=== PATIENT | female | born 1950 | race African-American/Black ===

== ENCOUNTER 2019-10-12 19:21 | Inpatient (IN) | payer MEDICAID, MEDICARE, OTHER ==
[2019-10-13 04:05] VITALS: BP 149/90
[2019-10-13] MEDS ORDERED: Magnesium Hydroxide (MOM) 30 mL UDC PO PRN (04:34)
[2019-10-13] MEDS ORDERED: Maalox 30 mL Cup PO PRN (04:34)
[2019-10-13] MEDS: Multivitamin Tab PO SCH (09:50)
--- NOTE | 2019-10-13 20:59 | Psychiatric Evaluation ---
DATE OF SERVICE: 10/13/2019 IDENTIFYING DATA: The patient is a 69-year-old -[place] woman living with her family. Information obtained by directly interviewing the patient as well as reviewing the admission papers. JUSTIFICATION OF HOSPITALIZATION: The patient is admitted on a 5150 as a danger to self, danger to others and being gravely disabled. Chart is reviewed. The patient is interviewed. During the interview, the patient has been mentioning that it is unnecessary for her to be in here and has been insisting that her son is the one that has been making up the stories and then trying to get her into the hospital, so that he can stay in the trailer. The patient is stating that she is from [place], [place] and she has moved recently into a trailer and there has been radiation all over. The patient has been stating that he have moved her to the hospital where there have been some CAT scans and MRIs and poisoned her brain with radiation. The patient is stating that she has been frustrated with what has been happening to her. The patient has been seen by the [facility] prior to her being in here and the patient has been known to have psychosis and has been downplaying her behavioral problems. I tried to get in touch with the family, but there is not much of any response from them. I have to look for the correct phone number to get in touch with the son or the daughter. The patient during the interview has been very paranoid and is stating that I need to get in touch with her doctor, Dr. Morales ____ in [place] to get the details of her medications. The patient is stating that she has a bad kidney. Apart from that she is not giving details about her any psych medications. PAST PSYCHIATRIC HISTORY: Details are not known and she states that she was not in need of any psychiatric hospitalizations. MEDICAL HISTORY: Physical examination is requested by Dr. Ford. SUBSTANCE ABUSE HISTORY: None. PHYSICAL OR SEXUAL ABUSE HISTORY: None. LEGAL PROBLEMS: None at this time. SOCIAL HISTORY: The patient is reported to have been moved to a trailer in [place] and the patient is stating that her family has been supposed to be helping her out. MENTAL STATUS EXAMINATION: The patient is a 69-year-old woman looking her stated age, is cooperative. Eye contact is fair. Mood is noted to be irritable. Affect is constricted. Speech is noted to be coherent and relevant. Insight and judgment at this time are noted to be very much impaired. Impulse control is noted to be limited. The patient is reported to be screaming and yelling. The patient has paranoid delusions, but denies any visual hallucinations, but at the time of the evaluation with the Tele Psych, the patient reported to have been seeing the bugs all over her bed sheets. The patient's behavior is likely danger to self and others in view of her screaming, yelling and has been not able to contacting for safety. The patient is also gravely disabled and is not able to care for self. The patient is alert and oriented to time and person, but not to place. The patient has been stating that today is the Monday, even though it is Monday, the patient has been having difficult time to come up with the correct day and date and the patient's long-term memory seems to be fair. The patient at this time is insisting that she should be back to her trailer and the patient is getting easily irritable. DIAGNOSES IMPRESSION: AXIS I: Unspecified psychosis. AXIS II: None. AXIS III: As per Dr. Ford. TREATMENT PLAN: The patient is going to be placed on a low dose of the antipsychotic medications such as the Seroquel 12.5 mg at bedtime and the patient is going to be followed up with the supportive therapy. ESTIMATED LENGTH OF STAY: 5-7 days. DISCHARGE CRITERIA: When the patient is no longer a threat to self or others and be able to cope up with the stress. [facility]# [id number]
--- NOTE | 2019-10-13 21:12 | History & Physical ---
ADMIT DATE: 10/13/2019 HISTORY OF PRESENT ILLNESS: The patient is a 69-year-old female with long history of hypertension, degenerative joint disease, gastroesophageal reflux, depression, and psychosis, admitted to [facility] under Dr. Erwin's service. The patient is complaining of joint pain and spasm of lower extremities. No fever, no chills, no nausea, no vomiting. PAST MEDICAL HISTORY: Significant for borderline hypertension, degenerative joint disease, gastroesophageal reflux, chronic constipation, and depression. PAST SURGICAL HISTORY: No recent surgery. ALLERGIES: None. MEDICATIONS: Follow admission reconciliation. SOCIAL HISTORY: No smoking, no alcohol, no drug. FAMILY HISTORY: Noncontributory. REVIEW OF SYSTEMS: RENAL SYSTSEM/IMMUNO SYSTEM: No history of chronic renal disorder. CARDIOVASCULAR SYSTEM: No coronary artery disease. ENDOCRINE SYSTEM: No diabetes or thyroid problem. GASTROINTESTINAL SYSTEM: No upper or lower GI bleeding. She has history of gastroesophageal reflux and chronic constipation. NEUROLOGICAL SYSTEM: No seizure disorder. SKELETOMUSCULAR SYSTEM: She has degenerative joint disease. HEMATOLOGICAL SYSTEM: No bleeding tendencies. RESPIRATORY SYSTEM: No asthma. GENITOURINARY: No dysuria or hematuria. PHYSICAL EXAMINATION: GENERAL: She is awake, alert, oriented. VITAL SIGNS: Temperature 98.6, heart rate is 83 and blood pressure 160/68. HEENT: Normocephalic. Pupils are reactive to light and accommodation. Sclerae clear. NECK: Supple. Negative for lymphadenopathy, JVD or bruit. CHEST: Entry of air bilaterally normal. No rhonchi or wheezing. HEART: S1, S2. No murmurs, rubs or gallop rhythm. ABDOMEN: Soft, bowel sounds positive. EXTREMITIES: No edema. BACK: Normal vertebra. SKIN: Intact. BREASTS, PELVIC AND RECTAL: Done by primary physician, no complaint. NEUROLOGIC: She is awake, alert, oriented. Cranial nerve #1: The patient is able to smell alcohol prep pad. Cranial nerve #2: The patient is able to be able to read printed page. Cranial nerve #3: She has a right eyeball is moving towards the right, not to the left. Cranial nerve #4: The patient is unable to move the right eye downward and inward. Cranial nerve#5: The patient is able to clench teeth, has normal sensation to forehead. Cranial nerve #6: The patient is able to move her left eye laterally, but not the right eye. Cranial #7: The patient move eyebrow on both sides. Cranial nerve #8: The patient is able to be able to hear finger rubs on both sides. Cranial nerve #9: The patient has a normal gag reflex. Cranial nerve #10: The patient is able to move soft palate upward on each side. Cranial nerve #11: The patient is able to shrug shoulder on both sides. Cranial nerve #12: The patient able to stick tongue straight. Motor system: Gait normal. Romberg is normal. Deep tendon reflexes within normal. Plantar is normal. [id number] is normal. [id number] is normal. Sensory is intact. ASSESSMENT: 1. Borderline hypertension. 2. Degenerative joint disease. 3. Gastroesophageal reflux. 4. Psychosis. PLAN: The patient in the hospital under Dr. Erwin's service. Medical problems addressed during hospitalization are depression, psychosis. Problem addressed at discharge are hypertension, gastroesophageal reflux. The patient is medically stable for activity. Thank you, Dr. Erwin, for asking me to see your patient. The patient will follow up with primary physician upon discharge. The patient is a full code. JOB# [id number]
[2019-10-14] MEDS: Multivitamin Tab PO SCH (08:42)
--- NOTE | 2019-10-14 20:08 | Internal Medicine Prog Note ---
Internal Medicine Subjective - Subjective Service Date: 10/14/19 Patient seen and examined:: without staff (SHE FEELS BETTER) Patient is:: awake, verbal, in bed, talking Per staff patient has:: no adverse event Internal Medicine Objective - Physical Exam Vitals and I&O: Vital Signs Temp 98.0 F 10/14/19 15:20 Pulse 78 10/14/19 15:20 Resp 20 10/14/19 15:20 BP 128/64 10/14/19 15:20 Pulse Ox 96 10/14/19 15:20 Intake & Output 10/14/19 10/14/19 10/15/19 06:59 18:59 06:59 Intake Total 240 1000 Balance 240 1000 Intake: Oral 240 1000 Other: # Voids 2 4 # Bowel Movements 0 1 Stool Characteristics Soft Soft Active Medications: Current Medications Acetaminophen (Tylenol) 650 mg PO Q4H PRN PRN Reason: Pain (Mild 1-3) Stop: 12/12/19 04:33 Last Admin: 10/13/19 21:17 Dose: 650 mg Al Hydrox/Mg Hydrox/Simethicone (Maalox) 30 ml PO Q4HR PRN PRN Reason: GI DISTRESS Stop: 12/12/19 04:33 Cyclobenzaprine HCl (Flexeril) 10 mg PO Q8H PRN PRN Reason: Leg Cramps Stop: 12/12/19 21:26 Lorazepam (Ativan) 0.5 mg PO Q4HR PRN; Protocol PRN Reason: Anxiety Stop: 11/12/19 04:33 Magnesium Hydroxide (Milk Of Magnesia) 30 ml PO HS PRN PRN Reason: Constipation Magnesium Oxide (Mag-Oxide) 400 mg PO HS TIMOTHY Stop: 12/12/19 20:59 Last Admin: 10/13/19 21:37 Dose: 400 mg Multivitamins/Vitamin C (Theragran) 1 tab PO DAILY TIMOTHY Stop: 12/12/19 08:59 Last Admin: 10/14/19 08:42 Dose: 1 tab Quetiapine Fumarate (Seroquel) 12.5 mg PO HS TIMOTHY; Protocol Stop: 12/12/19 20:59 Last Admin: 10/13/19 21:17 Dose: 12.5 mg Zolpidem Tartrate (Ambien) 5 mg PO HS PRN PRN Reason: Insomnia Stop: 12/12/19 04:33 Last Admin: 10/13/19 21:17 Dose: 5 mg General: alert HEENT: NC/AT, PERRLA, EOMI, anicteric sclerae, throat clear Neck: Supple, No JVD, No thyromegaly, +2 carotid pulse wo bruit, No LAD Lungs: CTAB Cardiovascular: RRR, Normal S1, Normal S2, without murmur Abdomen: soft, non-tender, non-distended Extremities: clear Neurological: no change, alert, gait stable Internal Medicine Assmt/Plan - Assessment Assessment: 1.HTN 2.DJD. 3.MAME. 4.PSYCHOSIS - Plan Plan: CONTINUE ON CURRENT MEDICATION AND DIET.
[2019-10-15] MEDS: Multivitamin Tab PO SCH (08:51)
[2019-10-15 14:12] LABS: CHOLESTEROL 159 mg/dL (<200); LDL CHOLESTEROL 80 mg/dL (0-129); TRIGLYCERIDES 98 mg/dL (30-150)
--- NOTE | 2019-10-15 20:36 | Internal Medicine Prog Note ---
Internal Medicine Subjective - Subjective Service Date: 10/15/19 Patient seen and examined:: without staff (SHE STILL HAS PAIN) Patient is:: awake, verbal, in bed, talking Per staff patient has:: no adverse event Internal Medicine Objective - Results Recent Labs: Laboratory Last Values Triglycerides 98 mg/dL (30-150) 10/15/19 09:45 Cholesterol 159 mg/dL (<200) 10/15/19 09:45 LDL Cholesterol 80 mg/dL (0-129) 10/15/19 09:45 HDL Cholesterol 65 mg/dL (>55) 10/15/19 09:45 - Physical Exam Vitals and I&O: Vital Signs Temp 97.4 F 10/15/19 14:47 Pulse 82 10/15/19 14:47 Resp 20 10/15/19 14:47 BP 107/70 10/15/19 14:47 Pulse Ox 96 10/15/19 14:47 Intake & Output 10/15/19 10/15/19 10/16/19 06:59 18:59 06:59 Intake Total 240 Balance 240 Intake: Oral 240 Other: # Voids 1 Stool Characteristics Soft Soft Active Medications: Current Medications Acetaminophen (Tylenol) 650 mg PO Q4H PRN PRN Reason: Pain (Mild 1-3) Stop: 12/12/19 04:33 Last Admin: 10/13/19 21:17 Dose: 650 mg Al Hydrox/Mg Hydrox/Simethicone (Maalox) 30 ml PO Q4HR PRN PRN Reason: GI DISTRESS Stop: 12/12/19 04:33 Cyclobenzaprine HCl (Flexeril) 10 mg PO Q8H PRN PRN Reason: Leg Cramps Stop: 12/12/19 21:26 Last Admin: 10/15/19 08:52 Dose: 10 mg Lorazepam (Ativan) 0.5 mg PO Q4HR PRN; Protocol PRN Reason: Anxiety Stop: 11/12/19 04:33 Magnesium Hydroxide (Milk Of Magnesia) 30 ml PO HS PRN PRN Reason: Constipation Magnesium Oxide (Mag-Oxide) 400 mg PO HS TIMOTHY Stop: 12/12/19 20:59 Last Admin: 10/14/19 20:50 Dose: 400 mg Multivitamins/Vitamin C (Theragran) 1 tab PO DAILY TIMOTHY Stop: 12/12/19 08:59 Last Admin: 10/15/19 08:51 Dose: 1 tab Quetiapine Fumarate (Seroquel) 25 mg PO HS TIMOTHY; Protocol Stop: 12/14/19 20:59 Zolpidem Tartrate (Ambien) 5 mg PO HS PRN PRN Reason: Insomnia Stop: 12/12/19 04:33 Last Admin: 10/14/19 20:51 Dose: 5 mg General: alert HEENT: NC/AT, PERRLA, EOMI, anicteric sclerae, throat clear Neck: Supple, No JVD, No thyromegaly, +2 carotid pulse wo bruit, No LAD Lungs: CTAB Cardiovascular: RRR, Normal S1, Normal S2, without murmur Abdomen: soft, non-tender, non-distended Extremities: clear Neurological: no change, alert, gait stable Internal Medicine Assmt/Plan - Assessment Assessment: 1.HTN 2.DJD. 3.MAME. 4.PSYCHOSIS - Plan Plan: CONTINUE ON CURRENT MEDICATION AND DIET.
--- NOTE | 2019-10-15 22:55 | Progress Notes ---
DATE: 10/15/2019 PSYCHIATRIC PROGRESS NOTE SUBJECTIVE: Staff was spoken to. The patient is interviewed. Mood is noted to be irritable. Affect is constricted. Insight and judgment at this time are noted to be still impaired. Impulse control is noted to be limited. Coping skills are also noted to be limited. The patient has been having difficult time to cope with the stress. She continues to be worried about radiation and that is bothering her and causing her headaches. The patient is also complaining of lot of body aches. ASSESSMENT: The patient is still grossly psychotic. PLAN: To continue the patient with the current medications. I encouraged the patient to verbalize the concerns rather than to act out. JOB# [id number]
--- NOTE | 2019-10-16 02:28 | Progress Notes ---
DATE: 10/14/2019 SUBJECTIVE: Staff was spoken to. The patient is interviewed. Mood is noted to be irritable. Affect is constricted. Insight and judgment at this time are noted to be still impaired. Impulse control is noted to be limited. Coping skills are noted to be limited. The patient has been having difficult time to cope with the stress, continues to be angry and upset about her daughter as well as a son and she tells me that they have been trying to occupy the trailer and then try to push her out. The patient is still feeling that she is being radiated over here. ASSESSMENT: The patient is still psychotic and gravely disabled. PLAN: To continue the patient with the supportive therapy and current medications. I encouraged the patient to verbalize the concerns rather than to act out. JOB# [id number]
[2019-10-16 04:09] LABS: A1C 6.1 % (4.8-5.6)
[2019-10-16] MEDS: Multivitamin Tab PO SCH (08:32)
--- NOTE | 2019-10-16 21:02 | Progress Notes ---
DATE: 10/16/2019 SUBJECTIVE: Staff was spoken to. The patient is interviewed. Mood is noted to be irritable. Affect is constricted. The patient is stating that the beds are too soft and she does not like the bed. The patient is stating that the radiation is bothering her and she is still having headaches. The patient continues to be paranoid. The patient's coping skills are noted to be extremely poor. Insight and judgment also noted to be very much limited. ASSESSMENT: The patient is still psychotic. PLAN: To continue the patient with the supportive therapy and follow up. JOB# [id number]
--- NOTE | 2019-10-16 21:06 | Internal Medicine Prog Note ---
Internal Medicine Subjective - Subjective Service Date: 10/16/19 Patient seen and examined:: without staff (SHE FEELS BETTER) Patient is:: awake, verbal, in bed, talking Per staff patient has:: no adverse event Internal Medicine Objective - Results Recent Labs: Laboratory Last Values Hemoglobin A1c 6.1 % (4.8-5.6) H 10/15/19 09:45 Triglycerides 98 mg/dL (30-150) 10/15/19 09:45 Cholesterol 159 mg/dL (<200) 10/15/19 09:45 LDL Cholesterol 80 mg/dL (0-129) 10/15/19 09:45 HDL Cholesterol 65 mg/dL (>55) 10/15/19 09:45 - Physical Exam Vitals and I&O: Vital Signs Temp 98.2 F 10/16/19 14:00 Pulse 77 10/16/19 14:00 Resp 20 10/16/19 20:00 BP 148/88 10/16/19 14:00 Pulse Ox 97 10/16/19 14:00 Intake & Output 10/16/19 10/16/19 10/17/19 06:59 18:59 06:59 Intake Total 240 1200 Balance 240 1200 Intake: Oral 240 1200 Other: # Voids 1 4 # Bowel Movements 1 Stool Characteristics Soft Soft Soft Active Medications: Current Medications Acetaminophen (Tylenol) 650 mg PO Q4H PRN PRN Reason: Pain (Mild 1-3) Stop: 12/12/19 04:33 Last Admin: 10/16/19 20:56 Dose: 650 mg Al Hydrox/Mg Hydrox/Simethicone (Maalox) 30 ml PO Q4HR PRN PRN Reason: GI DISTRESS Stop: 12/12/19 04:33 Cyclobenzaprine HCl (Flexeril) 10 mg PO Q8H PRN PRN Reason: Leg Cramps Stop: 12/12/19 21:26 Last Admin: 10/15/19 08:52 Dose: 10 mg Lorazepam (Ativan) 0.5 mg PO Q4HR PRN; Protocol PRN Reason: Anxiety Stop: 11/12/19 04:33 Magnesium Hydroxide (Milk Of Magnesia) 30 ml PO HS PRN PRN Reason: Constipation Magnesium Oxide (Mag-Oxide) 400 mg PO HS TIMOTHY Stop: 12/12/19 20:59 Last Admin: 10/16/19 20:55 Dose: 400 mg Multivitamins/Vitamin C (Theragran) 1 tab PO DAILY TIMOTHY Stop: 12/12/19 08:59 Last Admin: 10/16/19 08:32 Dose: 1 tab Quetiapine Fumarate (Seroquel) 25 mg PO HS TIMOTHY; Protocol Stop: 12/14/19 20:59 Last Admin: 10/16/19 20:56 Dose: 25 mg Tramadol HCl (Ultram) 50 mg PO Q6HR PRN PRN Reason: Pain (Severe 7-10) Stop: 12/14/19 20:35 Last Admin: 10/16/19 16:53 Dose: 50 mg Zolpidem Tartrate (Ambien) 5 mg PO HS PRN PRN Reason: Insomnia Stop: 12/12/19 04:33 Last Admin: 10/16/19 20:56 Dose: 5 mg General: alert HEENT: NC/AT, PERRLA, EOMI, anicteric sclerae, throat clear Neck: Supple, No JVD, No thyromegaly, +2 carotid pulse wo bruit, No LAD Lungs: CTAB Cardiovascular: RRR, Normal S1, Normal S2, without murmur Abdomen: soft, non-tender, non-distended Extremities: clear Neurological: no change, alert, gait stable Internal Medicine Assmt/Plan - Assessment Assessment: 1.HTN 2.DJD. 3.MAME. 4.PSYCHOSIS - Plan Plan: CONTINUE ON CURRENT MEDICATION AND DIET.
[2019-10-17] MEDS: Multivitamin Tab PO SCH (08:53)
--- NOTE | 2019-10-17 11:48 | Consultation ---
DATE OF CONSULTATION: 10/14/2019 TYPE OF CONSULTATION: Psychology. HISTORY OF PRESENT ILLNESS: The patient is a 69-year-old female. The following is by review of the medical record and by the patient's self-report. The patient is being admitted on 5150 as a danger to self and danger to others. Record review indicates that the patient has previously been assessed as gravely disabled. The patient during the interview stated continued problems with her son and that her son has been lying to the doctors and called the police on her to get her out of her trailer. The patient stated that she has a neurological disorder and that she has received radiation treatment on her "brain" and that treatment has altered her ability to think. The patient continued to talk and was going off on a tangent, but is redirectable at times. The patient denied any suicidal ideation, plan or intention at the time of this clinical interview. PAST MEDICAL HISTORY: Please see history and physical by Dr. Ford. PAST PSYCHIATRIC HISTORY: Records are unavailable. Details are unknown. SUBSTANCE ABUSE HISTORY: The patient states no history of alcohol, tobacco or illicit drug use. BRIEF PSYCHOSOCIAL HISTORY: The patient states that she lives in her own trailer in [place], [place] and that her son is supposed to be helping her. The patient did not answer questions about occupational or educational history. The patient states that she is a devout Gnosticist. The patient denied any history of physical or sexual abuse. The patient denied any current legal problems, but stated that she thinks she may have legal problems with her son about her living condition. MENTAL STATUS EXAMINATION: The patient appears to be her stated age. The patient's attitude is cooperative. Eye contact is fair. Mood is anxious and mildly irritable. Speech is spontaneous and relevant. Thought process is markedly tangential, but redirectable most of the time. The patient may be experiencing some suspiciousness as well as paranoid delusions. This needs further evaluation. She denied any visual or auditory hallucinations. The record indicates the patient has stated that she sees bugs all over her bedsheets. The patient denied any suicidal ideation, plan or intention at the time of this clinical interview. The patient's behavior has been withdrawn and isolative. Impulse control is limited. The patient's memory appears to be intact for immediate memory. Short-term and long-term memory appears to be impaired. The patient was unable to give milestones and those relevant dates. Concentration is fair to poor. General intellectual functioning seems to be estimated as average. The patient's sensorium is alert and oriented to self, person and place. The patient did not participate in the interpretation of proverbs. Insight is poor. Judgment is compromised. DIAGNOSTIC IMPRESSION AXIS I: Psychotic disorder, not otherwise specified. AXIS II: Deferred. AXIS III: Per Dr. Ford. TREATMENT PLAN: The patient is being seen by Dr. Erwin for psychiatric evaluation and for the management of the patient's psychotropic medications. According to record review, the patient is being started on Seroquel 12.5 mg at bedtime. We will provide supportive psychotherapy to include reality orientation, differentiation and integration. We will provide coping strategies for phase of life issues. We will provide motivational enhancement for the patient to become compliant and stay compliant with all aspects of her care and treatment. We will encourage the patient on a daily basis to verbally contract for safety and provide suicide prevention interventions. We will encourage the patient to have a discussion with her family regarding possible placement versus returning home on discharge. This will be discussed with the attending psychiatrist and case planner. We will provide stress management to assist the patient in increasing her frustration tolerance and to be able to cope with the stress and the changes in her medical condition. We will continue to provide supportive therapy throughout the patient's hospital stay. Thank you, Dr. Erwin for this consult and the opportunity to participate with you in this patient's care. JOB# [id number] [email or web address]
--- NOTE | 2019-10-17 19:37 | Internal Medicine Prog Note ---
Internal Medicine Subjective - Subjective Service Date: 10/17/19 Patient seen and examined:: without staff (SHE FEELS WELL) Patient is:: awake, verbal, in bed, talking Per staff patient has:: no adverse event Internal Medicine Objective - Results Recent Labs: Laboratory Last Values Hemoglobin A1c 6.1 % (4.8-5.6) H 10/15/19 09:45 Triglycerides 98 mg/dL (30-150) 10/15/19 09:45 Cholesterol 159 mg/dL (<200) 10/15/19 09:45 LDL Cholesterol 80 mg/dL (0-129) 10/15/19 09:45 HDL Cholesterol 65 mg/dL (>55) 10/15/19 09:45 - Physical Exam Vitals and I&O: Vital Signs Temp 97.0 F 10/17/19 14:00 Pulse 82 10/17/19 14:00 Resp 20 10/17/19 14:00 BP 154/78 10/17/19 15:17 Pulse Ox 98 10/17/19 14:00 Intake & Output 10/17/19 10/17/19 10/18/19 06:59 18:59 06:59 Intake Total 48 1200 Balance 48 1200 Intake: Oral 48 1200 Other: # Voids 3 # Bowel Movements 0 0 Stool Characteristics Soft Soft Active Medications: Current Medications Acetaminophen (Tylenol) 650 mg PO Q4H PRN PRN Reason: Pain (Mild 1-3) Stop: 12/12/19 04:33 Last Admin: 10/17/19 09:02 Dose: 650 mg Al Hydrox/Mg Hydrox/Simethicone (Maalox) 30 ml PO Q4HR PRN PRN Reason: GI DISTRESS Stop: 12/12/19 04:33 Cyclobenzaprine HCl (Flexeril) 10 mg PO Q8H PRN PRN Reason: Leg Cramps Stop: 12/12/19 21:26 Last Admin: 10/17/19 09:02 Dose: 10 mg Lorazepam (Ativan) 0.5 mg PO Q4HR PRN; Protocol PRN Reason: Anxiety Stop: 11/12/19 04:33 Magnesium Hydroxide (Milk Of Magnesia) 30 ml PO HS PRN PRN Reason: Constipation Magnesium Oxide (Mag-Oxide) 400 mg PO HS TIMOTHY Stop: 12/12/19 20:59 Last Admin: 10/16/19 20:55 Dose: 400 mg Multivitamins/Vitamin C (Theragran) 1 tab PO DAILY TIMOTHY Stop: 12/12/19 08:59 Last Admin: 10/17/19 08:53 Dose: 1 tab Quetiapine Fumarate (Seroquel) 25 mg PO HS TIMTOHY; Protocol Stop: 12/14/19 20:59 Last Admin: 10/16/19 20:56 Dose: 25 mg Tramadol HCl (Ultram) 50 mg PO Q6HR PRN PRN Reason: Pain (Severe 7-10) Stop: 12/14/19 20:35 Last Admin: 10/17/19 15:36 Dose: 50 mg Zolpidem Tartrate (Ambien) 5 mg PO HS PRN PRN Reason: Insomnia Stop: 12/12/19 04:33 Last Admin: 10/16/19 20:56 Dose: 5 mg General: alert HEENT: NC/AT, PERRLA, EOMI, anicteric sclerae, throat clear Neck: Supple, No JVD, No thyromegaly, +2 carotid pulse wo bruit, No LAD Lungs: CTAB Cardiovascular: RRR, Normal S1, Normal S2, without murmur Abdomen: soft, non-tender, non-distended Extremities: clear Neurological: no change, alert, gait stable Internal Medicine Assmt/Plan - Assessment Assessment: 1.HTN 2.DJD. 3.MAME. 4.PSYCHOSIS - Plan Plan: CONTINUE ON CURRENT MEDICATION AND DIET.
--- NOTE | 2019-10-18 05:37 | Progress Notes ---
DATE: 10/17/2019 PSYCHIATRIC PROGRESS NOTE SUBJECTIVE: Staff was spoken to. The patient is interviewed. Mood is noted to be irritable. Affect is constricted. The patient is stating the beds are no good and the radiation has been hurting her head and she states that she needs to be out of here. The patient is stating that her son is not going to be of any help to her. She wants us to contact her daughter. No side effects to the medications are noted, but the patient continues to be paranoid. Sleep and appetite are noted to be fair at this time. No side effects to the medications are noted. ASSESSMENT: The patient is still psychotic. PLAN: To continue the patient with the supportive therapy. I encouraged the patient to verbalize the concerns rather than to act out. JOB# [id number]
[2019-10-18] MEDS: Multivitamin Tab PO SCH (09:06)
--- NOTE | 2019-10-18 22:40 | Discharge Summary ---
DATE OF DISCHARGE: 10/18/2019 IDENTIFYING DATA: The patient is a 69-year-old -Citizen Of [place] woman living with her family. Information obtained by directly interviewing the patient as well as reviewing the admission papers. JUSTIFICATION OF HOSPITALIZATION: The patient is admitted here on a 5150 as a danger to self. CHIEF COMPLAINT: "There is too much of radiation that is hurting my head." HISTORY OF PRESENT ILLNESS: Please refer to the 10/13/2019 dictation done by me. DIAGNOSES AT THE TIME OF ADMISSION: AXIS I: Psychotic disorder, not otherwise specified. AXIS II: None. AXIS III: As per Dr. Ford. HOSPITAL COURSE AND RESPONSE TO TREATMENT: The patient has been observed on inpatient unit, provided with supportive psychotherapy. The patient has been encouraged to participate in the groups and verbalize the concerns. The patient has been continued with Seroquel that was given 25 mg at bedtime for her psychosis and the patient has been observed. The patient continues to be paranoid, but denies any command hallucinations. Insight and judgment at this time and evaluation are noted to be improving. Impulse control is noted to be fair, but the patient has been pushing for discharge saying that she is not comfortable to be in the hospital and she will better up with her family. The patient has been finally discharged with recommendation that she is going to be seeking treatment on an outpatient basis. MENTAL STATUS EXAMINATION: At the time of the discharge, the patient's mood is noted to be irritable. Affect is constricted. The patient still has paranoia, but denies any command hallucinations. The patient is more somatically preoccupied. The patient is not presenting with any threats to harm self or others at the time of the discharge. CONDITION AT THE TIME OF DISCHARGE: Noted to be stable. DIAGNOSES AT THE TIME OF DISCHARGE: AXIS I: Unspecified psychosis. AXIS II: None. AXIS III: As per Dr. Ford. AFTERCARE PLAN: The patient is discharged to [facility] to be followed up on an outpatient basis. JOB# [id number]
== END 2019-10-18 14:20 | disposition home or self-care (01) | DRG 885 ==
LOC: GERO 10-13 01:30
PROVIDERS: ADMIT Psychiatry & Neurology Psychiatry; ATTEND Psychiatry & Neurology Psychiatry
DX: F23 Brief psychotic disorder (principal); M19.90 Unspecified osteoarthritis, unspecified site; K21.9 Gastro-esophageal reflux disease without esophagitis; F32.9 Major depressive disorder, single episode, unspecified; I10 Essential (primary) hypertension; Z79.899 Other long term (current) drug therapy
CPT/HCPCS: 36415-UA; 80061-TC; 83036-90; U0003-CS; Z7610